=== PATIENT | male | born 1970 | race Caucasian/White ===

== ENCOUNTER 2016-10-18 05:47 | Emergency (ER) | payer MEDICAID ==
[~2016-10-18] VITALS: Ht 172.7 cm; Wt 167.8 kg
[2016-10-18 05:50] VITALS: BP 146/90; PULSE 95; RESP 18; TEMP 97.8; O2SAT 98
--- NOTE | 2016-10-18 05:50 | NUR ---
Placed in room 06 . Placed on registered nurse cardiac, blood pressure machine and pulse oximeter. To gown for exam. Side rails up. Report given to JARROD Banda.
--- NOTE | 2016-10-18 05:53 | NUR ---
Pt alert and oriented x 4. Came in the ER with a complaint of cough with chest pain x 1 week. Pain scale 7/10. Patient took Tylenol cold and flu and advil. Denies nausea and vomiting but had fever and was sweating last night. Temperature is 98.0 degrees Fahrenheit at this time. No acute distress or SOB noted. Will continue to monitor.
--- NOTE | 2016-10-18 06:10 | NUR ---
ER Dr. Haskins at bedside examining patient.
[2016-10-18] MEDS ORDERED: IPRATROPIUM/ALBUTEROL SULFATE 3 ML AMPUL.NEB INH ONE ×2 (06:15→07:00)
--- NOTE | 2016-10-18 06:16 | NUR ---
windshield repair technician at bedside taking chest x-ray.
[2016-10-18] MEDS ORDERED: IBUPROFEN 800 MG TABLET PO ONE (06:30)
[2016-10-18] MEDS ORDERED: ASPIRIN 81 MG TAB.CHEW PO ONE (06:30)
[2016-10-18] MEDS ORDERED: KETOROLAC TROMETHAMINE 30 MG VIAL IVP ONE (06:30)
[2016-10-18] MEDS ORDERED: ASPIRIN 81 MG TAB.CHEW ONE (06:39)
[2016-10-18 06:45] LABS: EOSINOPHILS # (AUTO) 0.2 K/uL (0.0-0.4); LYMPHOCYTES # (AUTO) 1.6 K/uL (1.0-5.5); MONOCYTES # (AUTO) 0.6 K/uL (0.0-1.0); WHITE BLOOD COUNT (AUTO) 6.3 K/uL (4.8-10.8)
[2016-10-18] MEDS ORDERED: AZITHROMYCIN 500 MG in NS 250 ML IV ONE (06:45)
[2016-10-18] MEDS ORDERED: HYDROcodone/ACETAMIN 5-325 MG TAB (NORCO/ VICODIN) PO ONE (06:45)
[2016-10-18] MEDS ORDERED: AZITHROMYCIN 500 MG/VIAL (ZITHROMAX) IV ONE (06:47)
[2016-10-18 06:50] LABS: BASOPHILS % (AUTO) 0.7 % (0.0-2.0); HEMATOCRIT 48.3 % (36-54); HEMOGLOBIN 16.4 g/dL (14.0-18.0); LYMPHOCYTES % (AUTO) 25.8 % (20.5-51.5); MEAN CORPUSCULAR HEMOGLOBIN 29 pg (27-31); MEAN CORPUSCULAR HGB CONC 34 % (32-36); MEAN CORPUSCULAR VOLUME 85 fL (79.0-98.0); MONOCYTES % (AUTO) 10.2 % (1.7-9.3); NEUTROPHILS # (AUTO) 3.9 K/uL (1.8-7.7); NEUTROPHILS % (AUTO) 60.3 % (40.0-70.0); PLATELET COUNT (AUTO) 184 K/uL (130-430); RED BLOOD CELL COUNT(AUTO) 5.67 MIL/uL (4.2-6.2); RED CELL DISTRIBUTION WIDTH 13.4 % (9.0-15.0)
[2016-10-18 06:51] LABS: ANION GAP 7 (5-15); CALCIUM 9.1 mg/dL (8.4-11.0); CHLORIDE 100 mmol/L (98-107); CREATININE 0.99 mg/dL (0.55-1.30); GLUCOSE 134 mg/dL (70-99); POTASSIUM 4.4 mmol/L (3.5-5.1); SODIUM SERUM 137 mmol/L (136-145); UREA NITROGEN, BLOOD 14 mg/dL (8-21)
[2016-10-18 06:54] LABS: GFR AFRICAN AMERICAN 105 mL/min (>90); PROTHROMBIN TIME 11.3 SECS (9.5-12.5)
[2016-10-18 07:00] LABS: ALANINE AMINOTRANSFERASE 42 U/L (12-78); ASPARTATE AMINOTRANSFERASE 25 U/L (10-37); TOTAL BILIRUBIN 0.4 mg/dL (0.0-1.0)
--- NOTE | 2016-10-18 07:10 | NUR ---
Assumed care,pt reports pain and dyspnea resolved.Pt awaiting Abx infusion.
--- NOTE | 2016-10-18 07:50 | NUR ---
Patient given written and verbal discharge instructions and verbalizes understanding. ER MD discussed with patient the results and treatment provided. Given copies of tests performed in ER. Patient in stable condition. ID arm band removed. IV catheter removed intact and dressing applied, no active bleeding. Rx of albuterol inh,z-pack,norco given. Patient educated on pain management and to follow up with PMD. Pain Scale 0. Opportunity for questions provided and answered.
[2016-10-18 08:00] VITALS: BP 118/88; PULSE 88; RESP 18; TEMP 97.8; O2SAT 98
== END 2016-10-18 07:50 | disposition home or self-care (01) ==
LOC: SED 05:47
DX: J20.9 Acute bronchitis, unspecified (principal); I10 Essential (primary) hypertension; F17.210 Nicotine dependence, cigarettes, uncomplicated; E66.01 Morbid (severe) obesity due to excess calories; Z68.43 Body mass index [BMI] 50.0-59.9, adult
CPT/HCPCS: 36415; 71010; 80053; 83880; 84484; 85025; 85610; 93005; 94640; 96365; 96375; 99285; J0456; J1885; J7050